=== PATIENT | female | born 1975 | race Caucasian/White ===

== ENCOUNTER 2018-07-11 11:02 | Day surgery (SDC) | payer OTHER ==
[~2018-07-11 11:02] MED LIST: SOD CHLORIDE 0.9% 1,000 ML IV
[2018-07-11 11:57] LABS: ADD MAN DIFF? NO
[2018-07-11 11:59] LABS: WHITE BLOOD COUNT 7.3 10^3/ul (4.8-10.8)
[2018-07-11 11:59] LABS: BASOPHILS % 0.3 % (0.0-2.0); EOSINOPHILS # 0.4 10^3/ul (0.0-0.5); EOSINOPHILS % 4.9 % (0.0-7.0); HEMATOCRIT 33.9 % (37.0-47.0); HEMOGLOBIN 10.3 g/dl (12.0-16.0); LYMPHOCYTES # 1.8 10^3/ul (0.8-2.9); LYMPHOCYTES % 24.7 % (15.0-51.0); MEAN CORPUSCULAR HEMOGLOBIN 21.9 pg (29.0-33.0); MEAN CORPUSCULAR HGB CONC 30.4 g/dl (32.0-37.0); MEAN PLATELET VOLUME 9.9 fl (7.4-10.4); MONOCYTE # 0.5 10^3/ul (0.3-0.9); MONOCYTES % 6.7 % (0.0-11.0); NEUTROPHIL # 4.6 10^3/ul (1.6-7.5); NEUTROPHILS % 63.1 % (39.0-77.0); PLATELET COUNT 348 10^3/UL (140-415); RED BLOOD COUNT 4.71 10^6/ul (4.20-5.40)
[2018-07-11] MEDS ORDERED: CEFAZOLIN 2 GM/50 ML (PMX) 50 ML IVPB (12:00)
[2018-07-11 12:17] LABS: ALANINE AMINOTRANSFERASE 35 IU/L (13-69); ALBUMIN 4.5 g/dl (3.3-4.9); ALBUMIN/GLOBULIN RATIO 1.28; ALKALINE PHOSPHATASE 92 IU/L (42-121); ANION GAP 9 (5-13); ASPARTATE AMINO TRANSFERASE 32 IU/L (15-46); BILIRUBIN,INDIRECT 0.3 mg/dl (0-1.1); BILIRUBIN,TOTAL 0.3 mg/dl (0.2-1.3); BLOOD UREA NITROGEN 13 mg/dl (7-20); CALCIUM 9.4 mg/dl (8.4-10.2); CARBON DIOXIDE 27 mmol/L (21-31); CHLORIDE 102 mmol/L (97-110); CREATININE 0.51 mg/dl (0.44-1.00); Estimated GFR > 60 mL/min (>60); GLUCOSE 95 mg/dl (70-220); POTASSIUM 3.9 mmol/L (3.5-5.1); SODIUM 138 mmol/L (135-144)
[2018-07-11 12:20] LABS: INR 0.97; PARTIAL THROMBOPLASTIN TIME 34.6 Sec (23.0-35.0)
[2018-07-11] MEDS ORDERED: NEOSTIGMINE 3 MG/3 ML SYRINGE (12:30)
[2018-07-11] MEDS ORDERED: CEFAZOLIN 1 GM INJ (12:30)
[2018-07-11] MEDS ORDERED: LIDOCAINE 2% (SDV) 5 ML INJ (12:30)
[2018-07-11] MEDS ORDERED: ROPIVACAINE 0.5 % 30 ML VIAL (12:30)
[2018-07-11] MEDS ORDERED: GLYCOPYRROLATE 0.4 MG INJ (12:30)
[2018-07-11] MEDS ORDERED: DESFLURANE 15 MIN (12:30)
[2018-07-11] MEDS ORDERED: ONDANSETRON 4 MG INJ (12:30)
[2018-07-11] MEDS ORDERED: PROPOFOL 200 MG INJ (12:30)
[2018-07-11] MEDS ORDERED: FENTAnyl 250MCG INJ (12:30)
[2018-07-11] MEDS ORDERED: INDIGOTINDISULFONATE 0.8% 5 ML INJ IV (14:00)
[2018-07-11] MEDS ORDERED: HYDROmorphONE 1 MG/5 ML IV SYRINGE IV ×2 (14:30)
[2018-07-11] MEDS ORDERED: HYDROCODONE/APAP (5/325) TAB PO ×2 (16:00)
[2018-07-11] MEDS ORDERED: morphine 2 MG INJ IV (16:00)
[2018-07-11] MEDS ORDERED: IBUPROFEN 600 MG TAB PO (16:00)
[2018-07-11] MEDS: HYDROmorphONE 1 MG/5 ML IV SYRINGE IV ×2 (16:24→16:35)
[2018-07-11] MEDS: ONDANSETRON 4 MG INJ IV (16:24)
[2018-07-11] MEDS: KETOROLAC 30 MG INJ IV (16:25)
== END 2018-07-11 18:10 | disposition home or self-care (01) ==
LOC: SDS 11:02
DX: K80.10 Calculus of gallbladder with chronic cholecystitis without obstruction (principal)
CPT/HCPCS: 47562; 80053; 85025; 85610; 85730; 88304